=== PATIENT | male | born 1940 | race Caucasian/White ===

== ENCOUNTER → 2018-01-07 | Outpatient (CLI) | payer MEDICARE ==
--- NOTE | 2018-01-16 07:46 | HM ---
HOLTER MONITOR REPORT Patient was monitored for 24 hours. The baseline rhythm is a sinus mechanism with normal conduction. The average rate 72 beats per minute, minimum of 52, maximum 111 beats per minute. Ventricular ectopic activity was present in the form of rare single PVCs. Supraventricular ectopic activity was present in the form of rare single PACs. No diary was available. CONCLUSION: 1. Sinus mechanism baseline rhythm. 2. Rare ventricular ectopic activity. 3. Rare supraventricular ectopic activity. 4. No diary was available. MMODL / IJN: [id number] /
== END | disposition home or self-care (01) ==
LOC: RADECHMAIN 11:55
PROVIDERS: ATTEND Internal Medicine
DX: R55 Syncope and collapse (principal)
CPT/HCPCS: 93225; 93226

== ENCOUNTER → 2018-01-10 | Outpatient (CLI) | payer MEDICARE ==
--- NOTE | 2018-01-10 15:58 | US ---
EXAMINATION TYPE: US carotid duplex BILAT DATE OF EXAM: 01/10/2018 COMPARISON: NONE CLINICAL HISTORY: G45.9 Transient Cerebral Ischemic Attack. EXAM MEASUREMENTS: RIGHT: Peak Systolic Velocity (PSV) cm/sec ----- Right CCA: 122.4 ----- Right ICA: 118.7 ----- Right ECA: 90.3 ICA/CCA ratio: 1.0 RIGHT: End Diastole cm/sec ----- Right CCA: 16.5 ----- Right ICA: 24.9 ----- Right ECA: 9.0 LEFT: Peak Systolic Velocity (PSV) cm/sec ----- Left CCA: 111.2 ----- Left ICA: 191.9 ----- Left ECA: 192.1 ICA/CCA ratio: 1.7 LEFT: End Diastole cm/sec ----- Left CCA: 29.6 ----- Left ICA: 53.8 ----- Left ECA: 23.8 VERTEBRALS (direction of flow): Right Vertebral: Antegrade Left Vertebral: Antegrade Rhythm: Arrhythmia Severe atherosclerotic plaque seen bilaterally. No velocity increase seen on right, left shows slight velocity increase. Grayscale, color Doppler, spectral Doppler imaging of the carotid arteries IMPRESSION: Hemodynamic significant stenosis of the proximal internal carotid artery on the left adriana esponding to possibly 50-69% diameter reduction, consider carotid CTA for better evaluation. Extensiv e vascular calcifications are noted. No hemodynamic significant stenosis of the proximal internal ca rotid artery on the right by Doppler criteria, an indirect measurement of carotid stenosis and additi onal findings above
--- NOTE | 2018-01-11 13:37 | ECHOF ---
Referral Reason:G45.9 Transient Cerebral Ischemic Attack MEASUREMENTS -------- HEIGHT: 162.6 cm WEIGHT: 55.8 kg BP: 129/67 RVIDd: 2.9 cm (< 3.3) IVSd: 0.9 cm (0.6 - 1.1) LVIDd: 2.9 cm (3.9 - 5.3) LVPWd: 0.9 cm (0.6 - 1.1) IVSs: 1.2 cm LVIDs: 1.9 cm LVPWs: 1.4 cm LA Diam: 2.8 cm (2.7 - 3.8) LAESV Index (A-L): 23.47 ml/m Ao Diam: 3.5 cm (2.0 - 3.7) AV Cusp: 1.8 cm (1.5 - 2.6) MV EXCURSION: 21.258 mm (> 18.000) MV EF SLOPE: 119 mm/s (70 - 150) EPSS: 0.2 cm MV E Julio: 0.92 m/s MV DecT: 147 ms MV A Julio: 0.88 m/s MV E/A Ratio: 1.04 RAP: 5.00 mmHg RVSP: 32.85 mmHg FINDINGS -------- Sinus rhythm. This was a technically adequate study. The left ventricular size is normal. Left ventricular wall thickness is normal. Overall left vent ricular systolic function is normal with, an EF between 60 - 65 %. The right ventricle is normal in size. Normal LA size by volume 22+/-6 ml/m2. The right atrium is normal in size. There is mild aortic valve sclerosis. The mitral valve is normal. The mitral valve leaflets are mildly thickened. Mild tricuspid regurgitation present. Right ventricular systolic pressure is normal at < 35 mmHg. Trace/mild (physiologic) pulmonic regurgitation. The aortic root size is normal. Normal inferior vena cava with normal inspiratory collapse consistent with estimated right atrial pre ssure of 5 mmHg. There is no pericardial effusion. CONCLUSIONS -------- 1. Sinus rhythm. 2. This was a technically adequate study. 3. The left ventricular size is normal. 4. Left ventricular wall thickness is normal. 5. Overall left ventricular systolic function is normal with, an EF between 60 - 65 %. 6. The right ventricle is normal in size. 7. Normal LA size by volume 22+/-6 ml/m2. 8. The right atrium is normal in size. 9. There is mild aortic valve sclerosis. 10. The mitral valve is normal. 11. The mitral valve leaflets are mildly thickened. 12. Mild tricuspid regurgitation present. 13. Right ventricular systolic pressure is normal at < 35 mmHg. 14. Trace/mild (physiologic) pulmonic regurgitation. 15. The aortic root size is normal. 16. Normal inferior vena cava with normal inspiratory collapse consistent with estimated right atrial pressure of 5 mmHg. 17. There is no pericardial effusion. PRINTER OPERATOR: Lisseth Marie RDCS
== END | disposition home or self-care (01) ==
LOC: RADUSMAIN 14:47
PROVIDERS: ATTEND Internal Medicine
DX: I65.22 Occlusion and stenosis of left carotid artery (principal); I99.8 Other disorder of circulatory system
CPT/HCPCS: 93306; 93880

== ENCOUNTER 2020-03-12 13:08 | Inpatient (IN) | payer MEDICARE ==
[2020-03-12] MEDS ORDERED: SODIUM CHLORIDE 0.9% 1,000 ML IV STA (13:20)
[2020-03-12] MEDS ORDERED: diphenhydrAMINE 50 MG/ML 1 ML VIAL IVP STA (13:20)
[2020-03-12] MEDS ORDERED: METOCLOPRAMIDE 5 MG/ML 2 ML VIAL IVP STA (13:20)
--- NOTE | 2020-03-12 13:43 | ED ---
Fall HPI <Walter Small - Last Filed: 03/12/20 16:20> - General Source: EMS Mode of arrival: EMS <Beverly Shirley - Last Filed: 03/12/20 22:55> - General Chief Complaint: Fall Stated Complaint: Fall/Syncope Time Seen by Provider: 03/12/20 13:20 - History of Present Illness Initial Comments: Patient is a 79-year-old male who presents emergency Department after he had a syncopal episode. He states he was outside in his garage rolling a cigarette. States he felt dizzy and fell onto to his left hip. He sustained a skin tear to the left elbow and left hand. He is complaining of pain in the left hip. Denies any chest pain or shortness of breath. No neck pain or back pain. He was placed in a c-collar at the scene. Denies any headache or visual changes. No chest pain previous to the incident. Denies any abdominal pain. Patient denies any numbness or tingling in his left leg. He is extremely hard of hearin g and therefore the HPI is limited. There are no other alleviating, precipitating or modifying factors (Beverly Shirley) - Related Data Home Medications Medication Instructions Recorded Confirmed Alfuzosin HCl [Alfuzosin HCl ER] 10 mg PO DAILY 03/12/20 03/12/20 Aspirin EC [Ecotrin Low Dose] 81 mg PO DAILY 03/12/20 03/12/20 Atorvastatin [Lipitor] 20 mg PO HS 03/12/20 03/12/20 Finasteride [Proscar] 5 mg PO DAILY 03/12/20 03/12/20 Allergies Allergy/AdvReac Type Severity Reaction Status Date / Time Antihistamines - Alkylamine AdvReac urinary Verified 03/12/20 15:25 retention Antihistamines - Ethanolamine AdvReac urinary Verified 03/12/20 15:25 retention Antihistamines - AdvReac urinary Verified 03/12/20 15:25 Ethylenediamine retention Antihistamines - Piperazine AdvReac urinary Verified 03/12/20 15:25 retention Antihistamines - Piperidine AdvReac urinary Verified 03/12/20 15:25 retention diphenhydramine AdvReac urinary Verified 03/12/20 15:25 [From Benadryl] retention hydromorphone HCl AdvReac Confusion Verified 03/12/20 15:25 [From Dilaudid] morphine AdvReac Confusion Verified 03/12/20 15:25 Review of Systems ROS Other: All systems not noted in ROS Statement are negative. <Walter Small - Last Filed: 03/12/20 16:20> ROS Other: All systems not noted in ROS Statement are negative. <Beverly Shirley - Last Filed: 03/12/20 22:55> ROS Statement: Those systems with pertinent positive or pertinent negative responses have been documented in the HPI. Past Medical History Past Medical History: Deep Vein Thrombosis (DVT), Hyperlipidemia History of Any Multi-Drug Resistant Organisms: None Reported Past Surgical History: Appendectomy, Back Surgery Past Psychological History: No Psychological Hx Reported Smoking Status: Current every day smoker Past Alcohol Use History: None Reported Past Drug Use History: None Reported <Beverly Shirley - Last Filed: 03/12/20 22:55> General Exam Limitations: physical limitation (hard of hearing) General appearance: alert, in no apparent distress Head exam: Present: atraumatic, normocephalic, normal inspection Eye exam: Present: normal appearance, PERRL, EOMI. Absent: scleral icterus, conjunctival injection, periorbital swelling ENT exam: Present: normal exam, mucous membranes moist Neck exam: Present: normal inspection, other (c-collar). Absent: tenderness, meningismus, lymphadenopathy Respiratory exam: Present: normal lung sounds bilaterally. Absent: respiratory distress, wheezes, rales, rhonchi, stridor Cardiovascular Exam: Present: regular rate, normal rhythm, normal heart sounds. Absent: systolic murmur, diastolic murmur, rubs, gallop, clicks GI/Abdominal exam: Present: soft, normal bowel sounds. Absent: distended, tenderness, guarding, rebound, rigid Extremities exam: Present: tenderness (left hip. Patient has deformity with rotation and shortening. 2+ dorsalis pedis and posterior tibial pulses bilaterally. Patient has intact sensation over the medial, lateral dorsal aspects of the feet. He has 5/5 muscle strength in his ankle and great toe dorsiflexors and foot plantar flexors. No range of motion testing done at the patient's left hip or knee due to pain.), normal capillary refill. Absent: pedal edema, joint swelling, calf tenderness Back exam: Present: normal inspection Neurological exam: Present: alert, oriented X3, CN II-XII intact Psychiatric exam: Present: normal affect, normal mood Skin exam: Present: warm, dry, normal color, other (skin tear left dorsal hand - 1.5 cm, left elbow - 0.5 cm ). Absent: rash <Beverly Shirley - Last Filed: 03/12/20 22:55> Course Vital Signs 03/12/20 03/12/20 03/12/20 13:15 13:18 14:00 Temperature 98.7 F Pulse Rate 78 70 Respiratory 18 15 Rate Blood Pressure 142/80 142/80 O2 Sat by Pulse 97 97 97 Oximetry 03/12/20 03/12/20 15:00 16:00 Temperature 98.8 F Pulse Rate 65 65 Respiratory 16 16 Rate Blood Pressure 140/64 143/75 O2 Sat by Pulse 97 94 L Oximetry Medical Decision Making - Lab Data Result diagrams: 03/12/20 13:51 03/12/20 15:19 <Walter Small - Last Filed: 03/12/20 16:20> - Lab Data Result diagrams: 03/12/20 13:51 03/12/20 15:19 <Beverly Shirley - Last Filed: 03/12/20 22:55> - Medical Decision Making Patient's care is signed out awaiting x-ray of the elbow, chest, and pelvis with left hip films. These x-rays are significant for a left IT fracture comminuted, displaced. Case discussed with Dolly Cervantes covering for orthopedics, will admit to Dr. Deras with Dr. Chadwick on consult for medical management and preoperative clearance. Dr. Chadwick has been contacted. (Walter Small) Upon arrival patient placed into room 10. A thorough history and physical exam was performed. Patient does have obvious deformity to the left hip. He was provided 50 mcg of fentanyl by EMS. I did give him another 50 mcg after hospital arrival. Laboratory studies were conducted. Patient went for CT of his brain and cervical spine. C-collar was removed after the CAT scan was read as negative. He has no neck pain upon removal. Patient is currently going over for x-ray imaging. The case with be signed out to Dr. Small (Beverly Shirley) - Lab Data Lab Results 03/12/20 03/12/20 03/12/20 Range/Units 13:51 14:46 15:19 WBC 15.9 H (3.8-10.6) k/uL RBC 4.35 (4.30-5.90) m/uL Hgb 11.7 L (13.0-17.5) gm/dL Hct 37.3 L (39.0-53.0) % MCV 85.7 (80.0-100.0) fL MCH 26.8 (25.0-35.0) pg MCHC 31.3 (31.0-37.0) g/dL RDW 13.5 (11.5-15.5) % Plt Count 155 (150-450) k/uL Neutrophils % 89 % Lymphocytes % 5 % Monocytes % 5 % Eosinophils % 0 % Basophils % 0 % Neutrophils # 14.1 H (1.3-7.7) k/uL Lymphocytes # 0.9 L (1.0-4.8) k/uL Monocytes # 0.8 (0-1.0) k/uL Eosinophils # 0.1 (0-0.7) k/uL Basophils # 0.0 (0-0.2) k/uL PT 10.3 (9.0-12.0) sec INR 1.0 (<1.2) APTT 24.0 (22.0-30.0) sec Sodium 136 L (137-145) mmol/L Potassium 3.8 (3.5-5.1) mmol/L Chloride 108 H (98-107) mmol/L Carbon Dioxide 24 (22-30) mmol/L Anion Gap 4 mmol/L BUN 14 (9-20) mg/dL Creatinine 0.79 (0.66-1.25) mg/dL Est GFR (CKD-EPI)AfAm >90 (>60 ml/min/1.73 sqM) Est GFR (CKD-EPI)NonAf 85 (>60 ml/min/1.73 sqM) Glucose 134 H (74-99) mg/dL Calcium 9.0 (8.4-10.2) mg/dL Total Bilirubin 0.6 (0.2-1.3) mg/dL AST 23 (17-59) U/L ALT 11 (4-49) U/L Alkaline Phosphatase 65 (38-126) U/L Creatine Kinase 116 (55-170) U/L Troponin I (0.000-0.034) ng/mL Total Protein 5.9 L (6.3-8.2) g/dL Albumin 3.7 (3.5-5.0) g/dL 03/12/20 Range/Units 15:19 WBC (3.8-10.6) k/uL RBC (4.30-5.90) m/uL Hgb (13.0-17.5) gm/dL Hct (39.0-53.0) % MCV (80.0-100.0) fL MCH (25.0-35.0) pg MCHC (31.0-37.0) g/dL RDW (11.5-15.5) % Plt Count (150-450) k/uL Neutrophils % % Lymphocytes % % Monocytes % % Eosinophils % % Basophils % % Neutrophils # (1.3-7.7) k/uL Lymphocytes # (1.0-4.8) k/uL Monocytes # (0-1.0) k/uL Eosinophils # (0-0.7) k/uL Basophils # (0-0.2) k/uL PT (9.0-12.0) sec INR (<1.2) APTT (22.0-30.0) sec Sodium (137-145) mmol/L Potassium (3.5-5.1) mmol/L Chloride (98-107) mmol/L Carbon Dioxide (22-30) mmol/L Anion Gap mmol/L BUN (9-20) mg/dL Creatinine (0.66-1.25) mg/dL Est GFR (CKD-EPI)AfAm (>60 ml/min/1.73 sqM) Est GFR (CKD-EPI)NonAf (>60 ml/min/1.73 sqM) Glucose (74-99) mg/dL Calcium (8.4-10.2) mg/dL Total Bilirubin (0.2-1.3) mg/dL AST (17-59) U/L ALT (4-49) U/L Alkaline Phosphatase (38-126) U/L Creatine Kinase (55-170) U/L Troponin I <0.012 (0.000-0.034) ng/mL Total Protein (6.3-8.2) g/dL Albumin (3.5-5.0) g/dL - EKG Data EKG Comments: EKG demonstrates a sinus rhythm with a first-degree block. Rate of 75. MS interval is 218. QRS 126. QTC of 471. No acute ST segment elevation or depression. No signs of high degree block (Beverly Shirley) Disposition Is patient prescribed a controlled substance at d/c from ED?: No Decision to Admit Reason: Admit from EC Decision Date: 03/12/20 Decision Time: 16:21 <Walter Small - Last Filed: 03/12/20 16:20> <Beverly Shirley - Last Filed: 03/12/20 22:55> Clinical Impression: Syncope, Fall, Fracture, intertrochanteric, left femur Disposition: ADMITTED IP TO THIS HOSP Condition: Stable
[2020-03-12] MEDS ORDERED: fentaNYL (PF) 50 MCG/ML 2 ML AMP IVP STA (13:45)
[2020-03-12 14:05] LABS: Basophils % (A) 0 %; Eosinophils # (A) 0.1 k/uL (0-0.7); Eosinophils % (A) 0 %; HCT 37.3 % (39.0-53.0); HGB 11.7 gm/dL (13.0-17.5); Lymphocytes # (A) 0.9 k/uL (1.0-4.8); Lymphocytes % (A) 5 %; MCH 26.8 pg (25.0-35.0); MCHC 31.3 g/dL (31.0-37.0); MCV 85.7 fL (80.0-100.0); Mean Platelet Volume 8.8; Monocytes # (A) 0.8 k/uL (0-1.0); Monocytes % (A) 5 %; Neutrophils # (A) 14.1 k/uL (1.3-7.7); Neutrophils % (A) 89 %; Platelet Count 155 k/uL (150-450); RBC 4.35 m/uL (4.30-5.90); RDW 13.5 % (11.5-15.5); WBC 15.9 k/uL (3.8-10.6)
--- NOTE | 2020-03-12 14:57 | CT ---
EXAMINATION TYPE: CT brain cspine wo con DATE OF EXAM: 03/12/2020 COMPARISON: CT brain 04/14/2010 HISTORY: syncope CT DLP: 1425.3 mGycm Automated exposure control for dose reduction was used. TECHNIQUE: CT scan of the head and cervical spine are performed without contrast. FINDINGS: There is no acute intracranial hemorrhage, mass effect, or midline shift identified. The ventricles and sulci are prominent with generalized volume loss. There are patchy deep, subcortical, and periventricular white matter hypodensities, increased from 2010 CT comparison. Small old right b rebecca ganglia lacunar infarct. The globes are grossly symmetric and the mastoid air cells are clear. T here is air-fluid level of the right maxillary sinus. Cervical spine is visualized in its entirety from C1 through upper thoracic levels and demonstrates n o evidence of acute fracture or dislocation. Prevertebral soft tissue appears within normal limits. The C1-C2 articulation is intact. Multilevel degenerative changes with varying degrees of canal and neural foramina narrowing. No high-grade canal stenosis. Within the right lung apex there is a 1.4 x 1.0 cm irregular pleural-based nodularity. IMPRESSION: 1. No acute intracranial hemorrhage, mass effect, or midline shift is seen. 2. Increased white matter hypodensities versus 2010 CT brain comparison. Findings likely represent pr ogression of chronic microvascular ischemic changes. However if there is concern for acute infarct, c onsideration can be given to follow-up MRI examination. 3. No acute fracture or dislocation of the cervical spine. 4. Right lung apex 1.4 cm irregular pleural-based nodularity. Findings may represent pleural-based sc arring versus lung nodule. Nonemergent noncontrast CT examination of the chest is recommended to asse ss for any additional lung lesions and establish baseline examination.
[2020-03-12 15:04] LABS: Prothrombin Time 10.3 sec (9.0-12.0)
[2020-03-12] MEDS ORDERED: HYDROmorphone 0.5 MG/0.5 ML SYRINGE IVP STA (15:10)
[2020-03-12 15:46] LABS: ALT 11 U/L (4-49); AST 23 U/L (17-59); African American GFR (CKD) >90 (>60 ml/min/1.73 sqM); Albumin 3.7 g/dL (3.5-5.0); Alkaline Phosphatase 65 U/L (38-126); Anion Gap 4 mmol/L; Blood Urea Nitrogen 14 mg/dL (9-20); Carbon Dioxide 24 mmol/L (22-30); Chloride 108 mmol/L (98-107); Creatine Kinase 116 U/L (55-170); Glucose 134 mg/dL (74-99); Non-African American GFR(CKD) 85 (>60 ml/min/1.73 sqM); Potassium 3.8 mmol/L (3.5-5.1); Sodium 136 mmol/L (137-145); Total Bilirubin 0.6 mg/dL (0.2-1.3); Total Protein 5.9 g/dL (6.3-8.2)
--- NOTE | 2020-03-12 15:56 | XR ---
EXAMINATION TYPE: XR chest 1V DATE OF EXAM: 03/12/2020 COMPARISON: 11/24/2012 HISTORY: 79-year-old male with cough and pain, fall TECHNIQUE: Single frontal view of the chest is obtained. FINDINGS: Rightward patient rotation alters the normal cardiomediastinal contours. Heart normal size. Atheroscl erotic arch calcification Mild hyperinflation. No consolidation or pleural effusion seen. IMPRESSION: Rotated exam. Possible underlying COPD. Otherwise, no acute process seen.
--- NOTE | 2020-03-12 15:58 | XR ---
EXAMINATION TYPE: XR elbow complete LT DATE OF EXAM: 03/12/2020 COMPARISON: NONE HISTORY: 79-year-old male fall, trauma, pain TECHNIQUE: 3 views FINDINGS: Limited assessment of elbow joint effusion due to suboptimal obliquity on the lateral view. No acute fracture, subluxation, dislocation. An IV is present at the antecubital fossa. IMPRESSION: Suboptimal positioning of the lateral view for assessment of joint effusion. No acute fracture identi fied. Lateral view can be repeated if clinical suspicion of an occult underlying injury.
--- NOTE | 2020-03-12 16:00 | XR ---
EXAMINATION TYPE: AP view pelvis and 2 views left hip DATE OF EXAM: 03/12/2020 COMPARISON: NONE HISTORY: 79-year-old male trauma, fall, pain, deformity FINDINGS: Degenerative changes lower lumbar spine. Mild degenerative change in both hips. There is a comminuted left intertrochanteric fracture with mild angulation and variable mild to moderate displacement of f racture fragments. No fracture extension to involve the lateral wall. IMPRESSION: Comminuted, angulated, mildly displaced left IT fracture.
[2020-03-12] MEDS ORDERED: NALOXONE 0.4 MG/ML 1 ML VIAL IV PRN (16:17)
[2020-03-12] MEDS: SODIUM CHLORIDE 0.9% 1,000 ML IV SCH (18:11)
[2020-03-12] MEDS ORDERED: DIAZEPAM 5 MG/ML 2 ML INJ IVP PRN (19:00)
[2020-03-12] MEDS ORDERED: diazePAM 5 MG TAB PO PRN (19:00)
[2020-03-12] MEDS: HYDROmorphone 0.5 MG/0.5 ML SYRINGE IVP PRN ×2 (19:25→23:08)
[2020-03-12] MEDS ORDERED: IPRATROPIUM-ALBUTEROL 3 ML NEB INHALATION PRN (20:00)
[2020-03-12] MEDS: IPRATROPIUM-ALBUTEROL 3 ML NEB INHALATION SCH (20:21)
[2020-03-12] MEDS: ATORVASTATIN 20 MG TAB PO SCH (23:08)
[2020-03-12] MEDS: HEPARIN SODIUM,PORCINE 5,000 UNIT/ML 1 ML VIAL SQ SCH ×2 (23:08→23:10)
--- NOTE | 2020-03-12 23:25 | CONS ---
CONSULTATION REASON FOR CONSULTATION: Advice regarding history of DVT and other multiple medical problems, requested by Dr. Deras. HISTORY OF PRESENT ILLNESS: This 79-year-old gentleman with a past medical history of DVT, hyperlipidemia, history of apparent syncope, had a fall in the garage and patient suffered acute comminuted angulated mildly displaced intertrochanteric fracture on the left side. The patient was admitted for further evaluation. The patient also was confused. The patient is being closely monitored. A CT scan of the head was done which showed increased white matter density, indicating chronic microvascular ischemia. Irregular nodularity was noted in the right apical area also. A chest x-ray which was done and personally reviewed by me showed some increased bronchovascular markings and some COPD. There is no history of any fever or rigors. PAST MEDICAL HISTORY: History of DVT, history of hyperlipidemia, history of appendectomy, back surgery. MEDICATIONS PRIOR TO ADMISSION: 1. Proscar 5 mg daily. 2. Lipitor. 3. Ecotrin. 4. Alfuzosin. Doses are reviewed. ALLERGIES: ANTIHISTAMINES, DIPHENHYDRAMINE, DILAUDID, MORPHINE. Family history, social history, review of systems could not be taken at length because of the patient's mental status. History of smoking. PHYSICAL EXAMINATION: Patient is conscious, confused. Pulse 65, blood pressure 143/75, respiration 16, temperature 99.8, pulse ox 94% on room. HEENT: Conjunctivae normal. Oral mucosa moist. NECK: No jugular venous distention. No carotid bruit. No lymph node enlargement. CARDIOVASCULAR SYSTEM: S1, S2 muffled. RESPIRATORY SYSTEM: Breath sounds diminished at the bases. A few scattered rhonchi and crackles. ABDOMEN: Soft, non-tender. No mass palpable. LEGS: Minimal edema. No swelling. NERVOUS SYSTEM: Higher functions as mentioned earlier. Moves all 4 limbs. No focal motor or sensory deficit. LYMPHATICS: No lymph node palpable in neck, axillae or groin. SKIN: No ulcer, rash, bleeding. JOINTS: No active deforming arthropathy. LABS: WBC 15.2, hemoglobin 11.7. Sodium 136, potassium 3.8. ASSESSMENT: 1. Fall and left intertrochanteric hip fracture. 2. Possible chronic obstructive pulmonary disease. 3. Increased white count, possibly reactive. 4. Anemia, normocytic. 5. Hyponatremia. 6. Change in mental status, metabolic encephalopathy, and acute delirium. 7. History of deep vein thrombosis. 8. Hyperlipidemia. 9. History of back surgery, degenerative joint disease. 10.History of continued ongoing nicotine dependence. 11.Right bundle branch block on EKG. 12.FULL CODE. RECOMMENDATIONS AND DISCUSSION: In this 79-year-old gentleman who presented with multiple complex medical issues, we will monitor the patient closely, continue the current medications, continue symptomatic treatment. Will initiate home medications and optimize bronchodilator treatment. Otherwise p.r.n. Valium. The patient is medically stable and will be cleared for surgery with some added risk because of the above-mentioned multiple complex medical issues. Otherwise, we will follow the patient closely with you. I would also recommend orthostatic vitals once the patient is more ambulant. Currently blood pressure is stable. Baseline cardiac workup shows negative troponins and EKG is showing a right bundle branch block. We will continue to monitor. MMSTEPANL / ESMEN: [id number] /
[2020-03-13] MEDS: HYDROmorphone 0.5 MG/0.5 ML SYRINGE IVP PRN ×2 (05:36→15:24)
[2020-03-13] MEDS: SODIUM CHLORIDE 0.9% 1,000 ML IV SCH ×2 (05:37→21:00)
[2020-03-13] MEDS: IPRATROPIUM-ALBUTEROL 3 ML NEB INHALATION SCH ×3 (07:46→21:00)
--- NOTE | 2020-03-13 08:40 | P.HPOR ---
History of Present Illness H&P Date: 03/13/20 Chief Complaint: Left hip fracture The patient is an 79-year-old male with a past medical history including DVT and hyperlipidemia who presented to the emergency department after a syncopal episode. The patient was rolling a cigarette in his garage and fell onto his left side. He had immediate left hip pain and was unable to bear weight. Upon evaluation in the ER, patient was found to have a comminuted intertrochanteric fracture of the left hip and skin tears to his left elbow and hand. CT of the head and neck reveal no acute bleed or fractures noted. The patient was admitted for surgical treatment of the left hip. The patient has been seen by internal medicine and has been cleared for surgery today. Today, the patient is very hard of hearing and is a little confused. He was asking for a few family members which are not present at this time and he did not know he is in the hospital currently. The patient appears comfortable laying in bed. Review of Systems ROS unobtainable: due to mental status Past Medical History Past Medical History: Deep Vein Thrombosis (DVT), Hyperlipidemia History of Any Multi-Drug Resistant Organisms: None Reported Past Surgical History: Appendectomy, Back Surgery Past Psychological History: No Psychological Hx Reported Smoking Status: Current every day smoker Past Alcohol Use History: None Reported Past Drug Use History: None Reported Medications and Allergies Home Medications Medication Instructions Recorded Confirmed Type Alfuzosin HCl [Alfuzosin HCl ER] 10 mg PO DAILY 03/12/20 03/12/20 History Aspirin EC [Ecotrin Low Dose] 81 mg PO DAILY 03/12/20 03/12/20 History Atorvastatin [Lipitor] 20 mg PO HS 03/12/20 03/12/20 History Finasteride [Proscar] 5 mg PO DAILY 03/12/20 03/12/20 History Allergies Allergy/AdvReac Type Severity Reaction Status Date / Time Antihistamines - Alkylamine AdvReac urinary Verified 03/12/20 15:25 retention Antihistamines - Ethanolamine AdvReac urinary Verified 03/12/20 15:25 retention Antihistamines - AdvReac urinary Verified 03/12/20 15:25 Ethylenediamine retention Antihistamines - Piperazine AdvReac urinary Verified 03/12/20 15:25 retention Antihistamines - Piperidine AdvReac urinary Verified 07/24/20 15:25 retention diphenhydramine AdvReac urinary Verified 03/12/20 15:25 [From Benadryl] retention hydromorphone HCl AdvReac Confusion Verified 03/12/20 15:25 [From Dilaudid] morphine AdvReac Confusion Verified 03/12/20 15:25 Physical Examination The patient is a 79 year old male that is no acute distress. He is alert and oriented x1. The patient's head is normocephalic and atraumatic. Exam of the cervical spine reveals no pain upon palpation or range of motion. Exam of the bilateral upper extremities reveal no obvious deformities or pain upon range of motion. There are dressings to the left elbow and hand that clean, dry, and intact. Exam of the right lower extremity reveals no pain upon palpation. Exam of the left lower extremity reveals a externally rotated and shortened leg. No pain upon palpation to the lateral hip. There is pain upon logrolling and any range of motion of the leg. Bilateral calves are soft and nontender. Patient has good foot and ankle motion bilaterally. Neurological and circulatory status is intact. Results - Labs Labs: Abnormal Lab Results - Last 24 Hours (Table) 03/12/20 03/12/20 Range/Units 13:51 15:19 WBC 15.9 H (3.8-10.6) k/uL Hgb 11.7 L (13.0-17.5) gm/dL Hct 37.3 L (39.0-53.0) % Neutrophils # 14.1 H (1.3-7.7) k/uL Lymphocytes # 0.9 L (1.0-4.8) k/uL Sodium 136 L (137-145) mmol/L Chloride 108 H (98-107) mmol/L Glucose 134 H (74-99) mg/dL Total Protein 5.9 L (6.3-8.2) g/dL H & H 03/12/20 Range/Units 13:51 Hgb 11.7 L (13.0-17.5) gm/dL Hct 37.3 L (39.0-53.0) % Coagulation 03/12/20 Range/Units 14:46 INR 1.0 (<1.2) Result Diagrams: 03/12/20 13:51 03/12/20 15:19 - Diagnostic results Hip x-ray: image reviewed (Left hip x-rays dated 03/12/2020 reveals a comminuted angulated and mildly displaced intertrochanteric fracture of the left hip) Assessment and Plan (1) Hyperlipidemia Current Visit: Yes Status: Acute Code(s): E78.5 - HYPERLIPIDEMIA, UNSPECIFIED SNOMED Code(s): 70072478 (2) Fall Current Visit: Yes Status: Acute Code(s): W19.XXXA - UNSPECIFIED FALL, INITIAL ENCOUNTER SNOMED Code(s): 3175273 (3) Fracture, intertrochanteric, left femur Current Visit: Yes Status: Acute Code(s): S72.142A - DISPLACED INTERTROCHANTERIC FRACTURE OF LEFT FEMUR, INIT SNOMED Code(s): 470381455 (4) Syncope Current Visit: Yes Status: Acute Code(s): R55 - SYNCOPE AND COLLAPSE SNOMED Code(s): 420675988 Plan: The clinical and x-ray findings were discussed with the patient to the best of my ability since he is very hard of hearing. No family is at the bedside at this time. The case was discussed with Dr. Deras. The patient is currently nothing by mouth. Ee are planning a left hip close reduction with insertion of IT nail later this morning. Patient has been cleared medically. We will continue to follow patient closely postoperatively and make further recommendations as needed. He will most likely need rehab upon discharge from the hospital.
[2020-03-13] MEDS: FINASTERIDE 5 MG TAB PO SCH (08:43)
[2020-03-13] MEDS: PANTOPRAZOLE 40 MG TABLET PO SCH (08:43)
[2020-03-13] MEDS: TAMSULOSIN 0.4 MG CAP.ER.24H PO SCH (08:43)
[2020-03-13] MEDS: HEPARIN SODIUM,PORCINE 5,000 UNIT/ML 1 ML VIAL SQ SCH ×2 (08:43→21:11)
[2020-03-13] MEDS: NICOTINE 14MG/24HR PATCH TRANSDERM SCH (08:47)
[2020-03-13 09:37] LABS: Basophils % (A) 0 %; Eosinophils % (A) 0 %; HCT 30.7 % (39.0-53.0); Lymphocytes # (A) 0.9 k/uL (1.0-4.8); Lymphocytes % (A) 10 %; MCHC 31.9 g/dL (31.0-37.0); MCV 87.9 fL (80.0-100.0); Mean Platelet Volume 7.6; Monocytes # (A) 0.8 k/uL (0-1.0); Monocytes % (A) 9 %; Neutrophils # (A) 7.4 k/uL (1.3-7.7); Neutrophils % (A) 80 %; Platelet Count 187 k/uL (150-450); RBC 3.49 m/uL (4.30-5.90); RDW 13.6 % (11.5-15.5); WBC 9.2 k/uL (3.8-10.6)
[2020-03-13 09:40] LABS: HGB 9.8 gm/dL (13.0-17.5)
[2020-03-13 09:46] LABS: African American GFR (CKD) >90 (>60 ml/min/1.73 sqM); Anion Gap 3 mmol/L; Blood Urea Nitrogen 16 mg/dL (9-20); Calcium 8.7 mg/dL (8.4-10.2); Carbon Dioxide 27 mmol/L (22-30); Chloride 108 mmol/L (98-107); Glucose 107 mg/dL (74-99); Non-African American GFR(CKD) 83 (>60 ml/min/1.73 sqM); Potassium 4.5 mmol/L (3.5-5.1); Sodium 138 mmol/L (137-145)
[2020-03-13] MEDS ORDERED: SODIUM CHLORIDE 0.9% 1,000 ML IV ONE ×2 (10:26)
[2020-03-13] MEDS ORDERED: MIDAZOLAM 2 MG/2 ML VIAL ONE (11:43)
[2020-03-13] MEDS ORDERED: fentaNYL (PF) 50 MCG/ML 2 ML AMP ONE (11:43)
[2020-03-13] MEDS ORDERED: PHENYLEPHRINE-0.9% NACL SYG 1 MG/10 ML SYRINGE ONE (11:43)
[2020-03-13] MEDS ORDERED: PROPOFOL 10 MG/ML 20 ML VIAL IV ONE (11:43)
[2020-03-13] MEDS ORDERED: KETAMINE 10 MG/ML 20 ML VIAL ONE (11:43)
[2020-03-13] MEDS ORDERED: LACTATED RINGERS 1,000 ML IV ONE ×2 (12:28)
[2020-03-13 12:37] VITALS: BMI 18.1
--- NOTE | 2020-03-13 12:37 | P.OP ---
Date of Procedure: 03/13/20 Procedure(s) Performed: PREOPERATIVE DIAGNOSIS: Left hip intertrochanteric fracture. POSTOPERATIVE DIAGNOSIS: Left hip intertrochanteric fracture. OPERATION: Left hip intertrochanteric fracture closed reduction and intramedullary nailing using Synthes IT nail. MEAT COUNTER CLERK: None ANESTHESIA: Spinal ESTIMATED BLOOD LOSS: 50 mL. COMPLICATIONS: None OPERATIVE FINDINGS: See dictation INDICATIONS: Mr. Vargas is an 79-year-old male with a history of left intertrochanteric fracture. The patient presents to the operating room today for closed reduction and intramedullary nailing. I discussed the risks of surgery in detail as being inclusive of but not limited to: Bleeding, infection, scarring, discomfort, blood vessel and/or nerve damage, need for further surgery, malunion, nonunion, gait disturbance including persistent or permanent limp, limb length inequality, arthritis, hardware failure, blood clot, pulmonary embolism, , and other risks. The consent form has been signed. PROCEDURE: After appropriate consent was obtained, the patient was taken to the operating room and placed in supine position. Spinal anesthetic was administered and after confirmation of adequate anesthesia, the patient was carefully placed in the supine position on the operating room table in the fr acture table. The patient was placed up against a well-padded peroneal post. Care was taken to make sure about that all pressure points were adequately padded. The affected leg was placed in boot traction and the unaffected leg was placed in a well leg larsen. Using gentle longitudinal distraction as well as adduction and internal rotation, the fracture was reduced as assessed by AP and lateral C-arm imaging. Once a satisfactory reduction had been obtained, the thigh was prepped and draped in the usual aseptic fashion using ChloraPrep. Ioban drape was used for the case and the patient received intravenous antibiotics prior to incision. Timeout was called, confirming patient identity, side, procedure, and administration of antibiotics. The incision was then created with a #10 blade just proximal to the greater trochanter laterally. It was carried down through skin into the subcutaneous tissues and through fascia. Hemostasis was obtained using electrocautery. The tip of the greater trochanter was palpated and a guide pin was placed at the tip and directed into the femoral shaft as assessed with C-arm imaging. Once optimal pin position had been obtained, a 17 mm reamer was used over the guide pin to create a path for the IT nail. IT nail selected was assembled to the insertion jig on the back table and bushings were checked for accuracy. The nail was then inserted using gentle mallet taps until it was fully deployed. The amount of rotation of the implant was assessed based on the amount of anteversion of the femoral neck. This was rotated to match the patient's femoral neck anteversion and the helical blade guide was placed through the insertion jig and through an incision on the lateral side of the thigh more distal than the first. Once this guide was placed against the lateral cortex of the femur, a guide pin was drilled into the central region of the femoral head and neck as based on AP and lateral C-arm imaging. Once optimal pin position had been obtained, the guidewire was measured and appropriately sized helical blade was selected. The path for the helical blade was prepared using a tapered reamer. The helical blade was then inserted using gentle mallet taps along the guidewire until it was fully deployed. There was no displacement of the fracture during this step. The anti-rotation screw was locked down and the insertion apparatus for the helical blade was removed. The guide pin was then removed. Traction was then removed from the leg and the distal interlock was placed through the jig using standard technique. Finally, the insertion jig for the nail was removed and final C-arm images were taken and saved in both AP and lateral planes. The final x-rays showed satisfactory positioning of the implant and good reduction of the fracture. The top of the nail was plugged with a small quantity of bone wax and the incisions were then thoroughly irrigated with normal saline. Final hemostasis was obtained using electrocautery and closure of the fascia was performed using 0-Vicryl suture. 2-0 Vicryl suture was used in the subcutaneous tissues and virgen were used for the skin. Sterile dressing was then applied and the patient was carefully removed from the fracture table frame and placed onto the stretcher. The patient tolerated the procedure well. There were no complications and 50 cc of blood loss. The patient was then subsequently kwon sferred to recovery room in stable condition. Sponge and needle counts were correct.
[2020-03-13] MEDS ORDERED: Acetaminophen-Codeine 300-30mg TAB PO PRN (12:38)
--- NOTE | 2020-03-13 13:22 | FL ---
EXAMINATION TYPE: FL guidance operating room DATE OF EXAM: 03/13/2020 HISTORY: Fluoroscopy time 51 seconds of fluoroscopy provided. IMPRESSION: 1. Fluoroscopy time.
--- NOTE | 2020-03-13 13:36 | XR ---
FLUOROSCOPY: 51 seconds of fluoroscopy time were utilized during internal fixation of the left hip. 2 films docume nt the procedure.
[2020-03-13 15:14] LABS: Basophils % (A) 0 %; Eosinophils % (A) 0 %; HCT 29.2 % (39.0-53.0); HGB 9.4 gm/dL (13.0-17.5); Lymphocytes # (A) 1.2 k/uL (1.0-4.8); Lymphocytes % (A) 9 %; MCHC 32.2 g/dL (31.0-37.0); MCV 86.9 fL (80.0-100.0); Mean Platelet Volume 8.3; Monocytes % (A) 8 %; Neutrophils # (A) 10.2 k/uL (1.3-7.7); Neutrophils % (A) 82 %; Platelet Count 176 k/uL (150-450); RBC 3.36 m/uL (4.30-5.90); RDW 13.5 % (11.5-15.5); WBC 12.4 k/uL (3.8-10.6)
--- NOTE | 2020-03-13 17:10 | P.PN ---
Subjective No overnight events patient is otherwise clinically doing well. Constitutional: Denied any fatigue denied any fever. Cardio vascular: denied any chest pain, palpitations Gastrointestinal denied any nausea vomiting Pulmonary: Denied any shortness of breath cough Neurologic denied any new focal deficits All inpatient medications were reviewed and appropriate changes in these medications as dictated in the interval history and assessment and plan. Objective - Vital Signs Vital signs: Vital Signs Temp 97.0 F L 03/13/20 13:08 Pulse 76 03/13/20 13:51 Resp 16 03/13/20 13:51 BP 131/64 03/13/20 13:51 Pulse Ox 99 03/13/20 13:51 Intake & Output 03/12/20 03/13/20 03/13/20 18:59 06:59 18:59 Intake Total 600 Output Total 600 250 Balance -600 350 Weight 52.617 kg 52.617 kg Intake: IV 600 Output: Urine 600 200 Estimated Blood Loss 50 Other: Voiding Method Indwelling Catheter Indwelling Catheter - Exam PHYSICAL EXAMINATION: GENERAL: The patient is alert and oriented x3, not in any acute distress. Well developed, well nourished. HEENT: Pupils are round and equally reacting to light. EOMI. No scleral icterus. No conjunctival pallor. Normocephalic, atraumatic. No pharyngeal erythema. No thyromegaly. CARDIOVASCULAR: S1 and S2 present. No murmurs, rubs, or gallops. PULMONARY: Chest is clear to auscultation, no wheezing or crackles. ABDOMEN: Soft, nontender, nondistended, normoactive bowel sounds. No palpable organomegaly. MUSCULOSKELETAL: Deferred to orthopedic surgery EXTREMITIES: No cyanosis, clubbing, or pedal edema. NEUROLOGICAL: Gross neurological examination did not reveal any focal deficits. SKIN: No rashes. - Labs CBC & Chem 7: 03/13/20 15:00 03/13/20 08:59 Labs: Abnormal Lab Results - Last 24 Hours (Table) 03/13/20 03/13/20 03/13/20 Range/Units 08:59 08:59 15:00 WBC 12.4 H (3.8-10.6) k/uL RBC 3.49 L 3.36 L (4.30-5.90) m/uL Hgb 9.8 L D 9.4 L (13.0-17.5) gm/dL Hct 30.7 L 29.2 L (39.0-53.0) % Neutrophils # 10.2 H (1.3-7.7) k/uL Lymphocytes # 0.9 L (1.0-4.8) k/uL Chloride 108 H (98-107) mmol/L Glucose 107 H (74-99) mg/dL Assessment and Plan Plan: -Fall and left intertrochanteric fracture status post surgery. -COPD without any significant exacerbation -Leukocytosis reactive secondary to fall -Hyponatremia hypovolemic hyponatremia improved with IV fluids IV fluids will be discontinued -Hyperlipidemia -Chronic low back pain -Benign prostatic hypertrophy Continue with present medications for myeloid benzo as well as barbiturates anticollagen medications constricting his age
[2020-03-13] MEDS: KETOROLAC 30 MG/ML 1 ML VIAL IVP PRN (17:48)
[2020-03-13] MEDS: FAMOTIDINE 20 MG TAB PO SCH (21:11)
[2020-03-13] MEDS: ATORVASTATIN 20 MG TAB PO SCH (21:11)
[2020-03-14] MEDS: KETOROLAC 30 MG/ML 1 ML VIAL IVP PRN (04:03)
[2020-03-14] MEDS ORDERED: HALOPERIDOL LACTATE 5 MG/ML 1 ML VIAL IM PRN (06:15)
[2020-03-14] MEDS: IPRATROPIUM-ALBUTEROL 3 ML NEB INHALATION SCH ×3 (07:27→20:56)
[2020-03-14] MEDS: PANTOPRAZOLE 40 MG TABLET PO SCH (07:30)
[2020-03-14] MEDS: HEPARIN SODIUM,PORCINE 5,000 UNIT/ML 1 ML VIAL SQ SCH ×2 (07:31→21:19)
[2020-03-14] MEDS: FINASTERIDE 5 MG TAB PO SCH (07:31)
[2020-03-14] MEDS: TAMSULOSIN 0.4 MG CAP.ER.24H PO SCH (07:31)
[2020-03-14] MEDS: FAMOTIDINE 20 MG TAB PO SCH (07:31)
[2020-03-14] MEDS: SODIUM CHLORIDE 0.9% 1,000 ML IV SCH ×2 (07:31→21:20)
[2020-03-14] MEDS: NICOTINE 14MG/24HR PATCH TRANSDERM SCH (07:31)
[2020-03-14 08:34] LABS: Calcium 8.7 mg/dL (8.4-10.2); Potassium 3.8 mmol/L (3.5-5.1)
[2020-03-14 08:39] LABS: Basophils % (A) 0 %; Eosinophils % (A) 0 %; HCT 24.4 % (39.0-53.0); HGB 8.2 gm/dL (13.0-17.5); Lymphocytes # (A) 0.4 k/uL (1.0-4.8); Lymphocytes % (A) 3 %; MCH 29.1 pg (25.0-35.0); MCHC 33.4 g/dL (31.0-37.0); MCV 87.2 fL (80.0-100.0); Mean Platelet Volume 7.8; Monocytes # (A) 0.7 k/uL (0-1.0); Monocytes % (A) 5 %; Neutrophils % (A) 91 %; Platelet Count 161 k/uL (150-450); RDW 13.6 % (11.5-15.5); WBC 13.2 k/uL (3.8-10.6)
--- NOTE | 2020-03-14 10:13 | P.PN ---
Subjective Progress Note Date: 03/14/20 Principal diagnosis: Status post left hip IT nail This is a 79 year-old male post left hip IT nail. This is post-op day 1. The patient was evaluated at the bedside today with his daughter present. He appears to be more confused today. The patient denies nausea, vomiting, abdominal pain, shortness of breath, and chest pain this morning. He states his pain is controlled at this time. The patient has not been up with physical therapy. The daughter states he is not normally this confused at home and gets very confused when he is not home. Objective - Vital Signs Vital signs: Vital Signs Temp 98.2 F 03/13/20 19:08 Pulse 78 03/13/20 19:08 Resp 16 03/13/20 19:08 BP 120/51 03/13/20 19:08 Pulse Ox 95 03/13/20 19:08 Intake & Output 03/13/20 03/14/20 03/14/20 18:59 06:59 18:59 Intake Total 600 70 Output Total 250 400 Balance 350 70 -400 Weight 52.617 kg Intake: IV 600 Oral 70 Output: Urine 200 400 Estimated Blood Loss 50 Other: Voiding Method Indwelling Catheter - Exam The patient does not appear in acute distress. Alert and orientated x3. Dressing is clean dry and intact. Incision appears fine with no erythema or active drainage. Calf is soft and nontender. Good foot and ankle motion without difficulty. Sensation and circulatory status is intact. - Labs CBC & Chem 7: 03/14/20 07:52 03/14/20 07:52 Labs: Abnormal Lab Results - Last 24 Hours (Table) 03/13/20 03/14/20 03/14/20 Range/Units 15:00 07:52 07:52 WBC 12.4 H 13.2 H (3.8-10.6) k/uL RBC 3.36 L 2.80 L (4.30-5.90) m/uL Hgb 9.4 L 8.2 L (13.0-17.5) gm/dL Hct 29.2 L 24.4 L (39.0-53.0) % Neutrophils # 10.2 H 12.0 H (1.3-7.7) k/uL Lymphocytes # 0.4 L (1.0-4.8) k/uL Sodium 135 L (137-145) mmol/L Assessment and Plan (1) Hyperlipidemia Current Visit: Yes Status: Acute Code(s): E78.5 - HYPERLIPIDEMIA, UNSPECIFIED SNOMED Code(s): 43383839 (2) Fall Current Visit: Yes Status: Acute Code(s): W19.XXXA - UNSPECIFIED FALL, INITIAL ENCOUNTER SNOMED Code(s): 4293513 (3) Fracture, intertrochanteric, left femur Current Visit: Yes Status: Acute Code(s): S72.142A - DISPLACED INTERTROCHANTERIC FRACTURE OF LEFT FEMUR, INIT SNOMED Code(s): 209340401 (4) Syncope Current Visit: Yes Status: Acute Code(s): R55 - SYNCOPE AND COLLAPSE SNOMED Code(s): 146470835 Plan: 1. Continue pain control 2. Anticoagulation with Heparin 3. Start physical therapy and ambulation, toe touch weightbearing 4. Anticipate discharge to [facility] in 1-2 days.
[2020-03-14] MEDS: Acetaminophen-Codeine 300-30mg TAB PO PRN ×3 (11:19→19:53)
[2020-03-14] MEDS: diazePAM 5 MG TAB PO PRN (19:53)
[2020-03-14] MEDS: ATORVASTATIN 20 MG TAB PO SCH (21:19)
[2020-03-15] MEDS: IPRATROPIUM-ALBUTEROL 3 ML NEB INHALATION SCH ×3 (07:11→21:15)
--- NOTE | 2020-03-15 08:41 | P.PN ---
Subjective Progress Note Date: 03/15/20 Principal diagnosis: Intertrochanteric fracture left hip. Status post close reduction with insertion of intertrochanteric nail left hip. This is an 79-year-old male who is status post close reduction with insertion of intertrochanteric nail of the left hip. He continues to have some confusion. His daughter is present at bedside. Objective - Vital Signs Vital signs: Vital Signs Temp 98.3 F 03/15/20 01:00 Pulse 80 03/15/20 07:24 Resp 20 03/15/20 01:00 BP 164/76 03/15/20 01:00 Pulse Ox 95 03/15/20 07:13 Intake & Output 03/14/20 03/15/20 03/15/20 18:59 06:59 18:59 Output Total 400 Balance -400 Output: Urine 400 Other: Voiding Method Urinal Urinal Incontinent Incontinent # Voids 1 1 - Exam This is a pleasantly confused 79-year-old male in no acute distress. He is alert with some confusion. His daughter is present at bedside. Exam of the left hip reveals that his dressing is clean, dry and intact. He has full foot and ankle motion without difficulty or pain. Neurovascular status to the lower extremity is intact. - Labs CBC & Chem 7: 03/14/20 07:52 03/14/20 07:52 Labs: Abnormal Lab Results - Last 24 Hours (Table) 03/14/20 Range/Units 07:52 WBC 13.2 H (3.8-10.6) k/uL RBC 2.80 L (4.30-5.90) m/uL Hgb 8.2 L (13.0-17.5) gm/dL Hct 24.4 L (39.0-53.0) % Neutrophils # 12.0 H (1.3-7.7) k/uL Lymphocytes # 0.4 L (1.0-4.8) k/uL Assessment and Plan (1) Fall Current Visit: Yes Status: Acute Code(s): W19.XXXA - UNSPECIFIED FALL, INITIAL ENCOUNTER SNOMED Code(s): 2778168 (2) Fracture, intertrochanteric, left femur Current Visit: Yes Status: Acute Code(s): S72.142A - DISPLACED INTERTROCHANTERIC FRACTURE OF LEFT FEMUR, INIT SNOMED Code(s): 089328080 Plan: The clinical findings are discussed the patient and his daughter. The daughter is requesting reevaluation with cardiology to discuss his bradycardia. We will plan transfer to inpatient rehab when cleared medically.
--- NOTE | 2020-03-15 10:37 | P.PN ---
Subjective Progress Note Date: 03/14/20 Principal diagnosis: Sinus bradycardia Fall/left intertrochanteric hip fracture; status post surgery Hyponatremia 79-year-old male with a past medical history including DVT and hyperlipidemia who presented to the emergency department after a syncopal episode. The patient was rolling a cigarette in his garage and fell onto his left side. He had immediate left hip pain and was unable to bear weight. Upon evaluation in the ER, patient was found to have a comminuted intertrochanteric fracture of the left hip and skin tears to his left elbow and hand. CT of the head and neck reveal no acute bleed or fractures noted. The patient was admitted for surgical treatment of the left hip. Patient is status post left hip surgery; POD #1; patient remains placid confused 03/14/2020 Patient is seen and evaluated with multiple family members at bedside; daughter is concerned about episodes of bradycardia; cardiology consult has been placed Vital signs remained stable with a temperature of 98.2, pulse 78, respirations 16 and blood pressure of 120/51 Lab review shows elevated white blood count of 13.2 which is slightly increased from yesterday at 12.4; hemoglobin remained stable at 8.2; sodium of 135 Cardiology has been consulted for evaluation of bradycardia; patient has been cleared by surgery for discharge to skilled rehab; plan would be to discharge patient to SNF once evaluated and cleared by cardiology Objective - Vital Signs Vital signs: Vital Signs Temp 98.2 F 03/13/20 19:08 Pulse 78 03/13/20 19:08 Resp 16 03/13/20 19:08 BP 120/51 03/13/20 19:08 Pulse Ox 95 03/13/20 19:08 Intake & Output 03/13/20 03/14/20 03/14/20 18:59 06:59 18:59 Intake Total 600 70 Output Total 250 400 Balance 350 70 -400 Weight 52.617 kg Intake: IV 600 Oral 70 Output: Urine 200 400 Estimated Blood Loss 50 Other: Voiding Method Indwelling Catheter Indwelling Catheter - Exam HEENT: Pupils are round and equally reacting to light. EOMI. No scleral icterus. No conjunctival pallor. Normocephalic, atraumatic. No pharyngeal erythema. No thyromegaly. CARDIOVASCULAR: S1 and S2 present. No murmurs, rubs, or gallops. PULMONARY: Chest is clear to auscultation, no wheezing or crackles. ABDOMEN: Soft, nontender, nondistended, normoactive bowel sounds. No palpable organomegaly. MUSCULOSKELETAL: Deferred to orthopedic surgery EXTREMITIES: No cyanosis, clubbing, or pedal edema. NEUROLOGICAL: Gross neurological examination did not reveal any focal deficits. - Labs CBC & Chem 7: 03/14/20 07:52 03/14/20 07:52 Labs: Abnormal Lab Results - Last 24 Hours (Table) 03/13/20 03/14/20 03/14/20 Range/Units 15:00 07:52 07:52 WBC 12.4 H 13.2 H (3.8-10.6) k/uL RBC 3.36 L 2.80 L (4.30-5.90) m/uL Hgb 9.4 L 8.2 L (13.0-17.5) gm/dL Hct 29.2 L 24.4 L (39.0-53.0) % Neutrophils # 10.2 H 12.0 H (1.3-7.7) k/uL Lymphocytes # 0.4 L (1.0-4.8) k/uL Sodium 135 L (137-145) mmol/L Assessment and Plan Assessment: - Sinus bradycardia; patient remains asymptomatic; cardiology is consulted and recommendations are pending -Fall and left intertrochanteric fracture status post surgery. -COPD without any significant exacerbation -Leukocytosis reactive secondary to fall -Hyponatremia hypovolemic hyponatremia improved with IV fluids IV fluids will be discontinued -Hyperlipidemia -Chronic low back pain -Benign prostatic hypertrophy Continue with present medications for myeloid benzo as well as barbiturates anticollagen medications constricting his age Time with Patient: Greater than 30
[2020-03-15 10:50] LABS: Basophils % (A) 0 %; Eosinophils % (A) 0 %; HCT 24.3 % (39.0-53.0); Lymphocytes # (A) 0.8 k/uL (1.0-4.8); Lymphocytes % (A) 8 %; MCHC 32.7 g/dL (31.0-37.0); MCV 85.6 fL (80.0-100.0); Mean Platelet Volume 7.8; Monocytes # (A) 0.5 k/uL (0-1.0); Monocytes % (A) 4 %; Neutrophils # (A) 9.7 k/uL (1.3-7.7); Neutrophils % (A) 87 %; Platelet Count 163 k/uL (150-450); RBC 2.84 m/uL (4.30-5.90); RDW 13.5 % (11.5-15.5); WBC 11.1 k/uL (3.8-10.6)
[2020-03-15 11:11] LABS: African American GFR (CKD) >90 (>60 ml/min/1.73 sqM); Anion Gap 4 mmol/L; Blood Urea Nitrogen 28 mg/dL (9-20); Carbon Dioxide 26 mmol/L (22-30); Chloride 110 mmol/L (98-107); Glucose 136 mg/dL (74-99); Non-African American GFR(CKD) 81 (>60 ml/min/1.73 sqM); Potassium 3.7 mmol/L (3.5-5.1); Sodium 140 mmol/L (137-145)
[2020-03-15] MEDS: TAMSULOSIN 0.4 MG CAP.ER.24H PO SCH ×2 (11:22→19:43)
[2020-03-15] MEDS: FAMOTIDINE 20 MG TAB PO SCH (11:24)
[2020-03-15] MEDS: FINASTERIDE 5 MG TAB PO SCH (11:24)
[2020-03-15] MEDS: PANTOPRAZOLE 40 MG TABLET PO SCH (11:25)
[2020-03-15] MEDS: HEPARIN SODIUM,PORCINE 5,000 UNIT/ML 1 ML VIAL SQ SCH ×2 (11:25→19:44)
[2020-03-15] MEDS: NICOTINE 14MG/24HR PATCH TRANSDERM SCH (11:25)
[2020-03-15] MEDS: ACETAMINOPHEN TAB 325 MG TAB PO PRN ×2 (11:26→19:43)
--- NOTE | 2020-03-15 11:49 | P.CRDCN ---
History of Present Illness History of present illness: HISTORY OF PRESENTING ILLNESS This is a pleasant 79-year-old male past medical history significant for dyslipidemia, chronic nicotine dependence and frequent syncopal episodes of the previous 3 years. 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 We have been asked to see in consultation for syncope. He initially presented to the hospital 03/12 after suffering a near syncopal event at home, falling and fracturing his left hip. He underwent surgical repair over the weekend. He apparently has these episodes frequently over the previous 3 years. He states he can feel it coming on. He gets lightheaded and has to brace himself against something to prevent falling until it passes. Usually last less than 1 minute. He denies feeling palpitations, diaphoresis, nausea, vomiting, chest pain or shortness of breath prior too. According to the granddaughter at the bedside he has been becoming increasingly confused over the previous few months. He is forgetful and no longer drives. DIAGNOSTICS EKG reveals sinus mechanism with right bundle branch block. Chest xray underlying COPD. CT of the brain reveals no acute intracranial hemorrhage, mass effect or midline shift, increased white matter hypodensities when compared to CT of the brain from 2010 likely progression of chronic microvascular ischemic changes. Also of note a right lung nodule. Laboratory reviewed, WBC 11.1, hemoglobin 8, platelets 163, sodium 140, potassium 3.7, creatinine 0.87, cardiac enzymes negative 1. Current cardiac medications include atorvastatin 20 mg daily and aspirin 81 mg daily. Most recent echocardiogram obtained in 2018 revealed preserved LV systolic function with ejection fraction 60-65%, mild TR noted. REVIEW OF SYSTEMS At the time of my exam: CONSTITUTIONAL: Denies fever or chills. CARDIOVASCULAR: Denies chest pain, shortness of breath, orthopnea, PND or palpitations. RESPIRATORY: Denies cough. GASTROINTESTINAL: Denies abdominal pain, diarrhea, constipation, nausea or vomiting. MUSCULOSKELETAL: Denies myalgias. NEUROLOGIC: Denies numbness, tingling or weakness. ENDOCRINE: Denies fatigue, weight change, polydipsia or polyurina. GENITOURINARY: Denies burning, hematuria or urgency with micturation. HEMATOLOGIC: Denies history of anemia or bleeding. PHYSICAL EXAMINATION Blood pressure 153/66 heart rate 83 afebrile and maintaining oxygen saturation on nasal cannula. CONSTITUTIONAL: No apparent distress. HEENT: Head is normocephalic. Pupils are equal, round. Sclerae anicteric. Mucous membranes of the mouth are moist. No JVD. Left carotid bruit. CHEST EXAMINATION: Lungs are clear to auscultation. No chest wall tenderness is noted on palpation or with deep breathing. Diminished bilaterally. HEART EXAMINATION: Regular rate and rhythm. S1, S2 heard. Soft systolic ejection murmur at the left sternal border, no gallops or rub. ABDOMEN: Soft, nontender. Positive bowel sounds. EXTREMITIES: 2+ peripheral pulses, no lower extremity edema and no calf tende rness. NEUROLOGIC EXAMINATION: Patient is awake, alert and oriented x3. ASSESSMENT Syncope. Likely related to his sick sinus syndrome. Left hip fracture status post surgical repair Dyslipidemia Chronic nicotine dependence PLAN Recommend 24-hour telemetry monitoring while in the hospital. Event monitoring upon discharge. Obtain 2-D echocardiogram and Doppler study to assess cardiac structure and function. Obtain bilateral carotid Doppler. Check TSH and lipid profile. Further recommendations to follow based upon clinical course. Thank you kindly for this consultation. Nurse Practitioner note has been reviewed, I agree with a documented findings and plan of care. Patient was seen and examined. Past Medical History Past Medical History: Deep Vein Thrombosis (DVT), Hyperlipidemia History of Any Multi-Drug Resistant Organisms: None Reported Past Surgical History: Appendectomy, Back Surgery Past Psychological History: No Psychological Hx Reported Smoking Status: Current every day smoker Past Alcohol Use History: None Reported Past Drug Use History: None Reported Medications and Allergies Home Medications Medication Instructions Recorded Confirmed Type Alfuzosin HCl [Alfuzosin HCl ER] 10 mg PO DAILY 03/12/20 03/12/20 History Aspirin EC [Ecotrin Low Dose] 81 mg PO DAILY 03/12/20 03/12/20 History Atorvastatin [Lipitor] 20 mg PO HS 03/12/20 03/12/20 History Finasteride [Proscar] 5 mg PO DAILY 03/12/20 03/12/20 History Allergies Allergy/AdvReac Type Severity Reaction Status Date / Time Antihistamines - Alkylamine AdvReac urinary Verified 03/12/20 15:25 retention Antihistamines - Ethanolamine AdvReac urinary Verified 03/12/20 15:25 retention Antihistamines - AdvReac urinary Verified 03/12/20 15:25 Ethylenediamine retention Antihistamines - Piperazine AdvReac urinary Verified 03/12/20 15:25 retention Antihistamines - Piperidine AdvReac urinary Verified 03/12/20 15:25 retention diphenhydramine AdvReac urinary Verified 03/12/20 15:25 [From Benadryl] retention hydromorphone HCl AdvReac Confusion Verified 03/12/20 15:25 [From Dilaudid] morphine AdvReac Confusion Verified 03/12/20 15:25 Physical Exam Vitals: Vital Signs Temp Pulse Pulse Pulse Resp BP Pulse Ox 03/15/20 09:37 98.1 F 83 153/66 100 03/15/20 07:24 80 03/15/20 07:13 80 95 03/15/20 01:00 98.3 F 87 20 164/76 93 L 03/14/20 19:20 98.7 F 88 20 150/63 95 03/14/20 14:32 97.9 F 51 L 16 89/53 96 Intake and Output 03/14/20 03/15/20 03/15/20 22:59 06:59 14:59 Other: Voiding Method Urinal Indwelling Catheter Incontinent # Voids 0 1 Results 03/15/20 09:22 03/15/20 09:22 CBC 03/15/20 Range/Units 09:22 WBC 11.1 H (3.8-10.6) k/uL RBC 2.84 L (4.30-5.90) m/uL Hgb 8.0 L (13.0-17.5) gm/dL Hct 24.3 L (39.0-53.0) % Plt Count 163 (150-450) k/uL Comprehensive Metabolic Panel 03/15/20 Range/Units 09:22 Sodium 140 (137-145) mmol/L Potassium 3.7 (3.5-5.1) mmol/L Chloride 110 H (98-107) mmol/L Carbon Dioxide 26 (22-30) mmol/L BUN 28 H (9-20) mg/dL Creatinine 0.87 (0.66-1.25) mg/dL Glucose 136 H (74-99) mg/dL Calcium 8.0 L (8.4-10.2) mg/dL Current Medications Generic Name Dose Route Start Last Admin Trade Name Freq PRN Reason Stop Dose Admin Acetaminophen 650 mg 03/12/20 16:17 03/15/20 11:26 Tylenol Tab PO 650 mg Q6HR PRN Administration Mild Pain or Fever > 100.5 Acetaminophen/Codeine Phosphate 1 each 03/13/20 12:38 Tylenol #3 PO Q3HR PRN Pain Scale 1 to 5 Acetaminophen/Codeine Phosphate 2 each 03/13/20 12:38 03/14/20 19:53 Tylenol #3 PO 2 each Q3HR PRN Administration Pain Scale 6 to 10 Albuterol/Ipratropium 3 ml 03/12/20 20:00 03/15/20 07:11 Duoneb 0.5 Mg-3 Mg/3 Ml Soln INHALATION 3 ml RT-TID JAZMIN Administration Albuterol/Ipratropium 3 ml 03/12/20 20:00 Duoneb 0.5 Mg-3 Mg/3 Ml Soln INHALATION RT-TID PRN Shortness Of Breath Or Wheezing Atorvastatin Calcium 20 mg 03/12/20 21:00 03/14/20 21:19 Lipitor PO Not Given HS [facility] Diazepam 5 mg 03/14/20 19:44 03/14/20 19:53 Valium PO 5 mg TID PRN Administration Pain Famotidine 20 mg 03/15/20 09:00 03/15/20 11:24 Pepcid PO 20 mg DAILY JAZMIN Administration Finasteride 5 mg 03/13/20 09:00 03/15/20 11:24 Proscar PO 5 mg DAILY JAZMIN Administration Heparin Sodium (Porcine) 5,000 unit 03/12/20 21:00 03/15/20 11:25 Heparin SQ 5,000 unit Q12HR JAZMIN Administration Sodium Chloride 1,000 mls @ 75 mls/hr 03/12/20 16:30 03/14/20 21:20 Saline 0.9% IV Not Given .[id number] JAZMIN Ketorolac Tromethamine 15 mg 03/13/20 17:12 03/14/20 04:03 Toradol IVP 03/18/20 17:13 15 mg Q6HR PRN Administration Pain Naloxone HCl 0.2 mg 03/12/20 16:17 Narcan IV Q2M PRN Opioid Reversal Nicotine 1 patch 03/13/20 09:00 03/15/20 11:25 Habitrol 14mg/24hr Patch TRANSDERM 1 patch DAILY JAZMIN Administration Pantoprazole Sodium 40 mg 03/13/20 07:30 03/15/20 11:25 Protonix PO 40 mg [id number] JAZMIN Administration Tamsulosin HCl 0.4 mg 03/13/20 09:00 03/15/20 11:22 Flomax PO 0.4 mg DAILY JAZMIN Administration Intake and Output 03/14/20 03/15/20 03/15/20 22:59 06:59 14:59 Other: Voiding Method Urinal Indwelling Catheter Incontinent # Voids 0 1 03/15/20 09:22 03/15/20 09:22
--- NOTE | 2020-03-15 11:56 | US ---
EXAMINATION TYPE: US carotid duplex BILAT DATE OF EXAM: 03/15/2020 COMPARISON: NONE CLINICAL HISTORY: syncope. EXAM MEASUREMENTS: RIGHT: Peak Systolic Velocity (PSV) cm/sec ----- Right CCA: 66.7 ----- Right ICA: 78.7 ----- Right ECA: 73.5 ICA/CCA ratio: 1.2 RIGHT: End Diastole cm/sec ----- Right CCA: 8.6 ----- Right ICA: 20.4 ----- Right ECA: 0.0 LEFT: Peak Systolic Velocity (PSV) cm/sec ----- Left CCA: 81.5 ----- Left ICA: 208.2 ----- Left ECA: 157.1 ICA/CCA ratio: 2.6 LEFT: End Diastole cm/sec ----- Left CCA: 12.7 ----- Left ICA: 52.5 ----- Left ECA: 0.0 VERTEBRALS (direction of flow): Right Vertebral: Antegrade Left Vertebral: Antegrade Rhythm: Normal Irregular, calcified plaque noted in bilateral carotid systems with abnormally elevated PSV in Left I CA proximally, and mid, and in Left ECA. IMPRESSION: 1. Large irregular plaques, larger on the left, contributing to moderate stenosis of the left ICA bet ween 50 and 69%. Criteria for Assigning % of Stenosis / Diameter reduction (Estimation based on the indirect measurements of the internal carotid artery velocities (ICA PSV). 1. Normal (no stenosis)=ICA PSV < 125 cm/s: ratio < 2.0: ICA EDV<40 cm/s. 2. Less than 50% stenosis=ICA PSV < 125 cm/s: ratio < 2.0: ICA EDV<40 cm/s. 3. 50 to 69% stenosis=ICA PSV of 125 to 230 cm/s: ration 2.0 ? 4.0: ICA EDV 40-100 cm/s. 4. Greater than 70% stenosis to near occlusion= ICA PSV > 230 cm/s: ratio > 4.0: ICA EDV > 100 cm/s. 5. Near occlusion= ICA PSV velocities may be low or undetectable: variable ratio and ICA EDV. 6. Total occlusion=unable to detect flow.
[2020-03-15] MEDS: SODIUM CHLORIDE 0.9% 1,000 ML IV SCH ×2 (12:38→23:29)
[2020-03-15 14:31] LABS: Cholesterol 106 mg/dL (<200); HDL Cholesterol 33 mg/dL (40-60); LDL Cholesterol,Calculated 51 mg/dL (0-99); Triglycerides 109 mg/dL (<150)
[2020-03-15 14:32] LABS: Basophils % (A) 0 %; Eosinophils # (A) 0.1 k/uL (0-0.7); Eosinophils % (A) 0 %; HGB 7.9 gm/dL (13.0-17.5); Lymphocytes # (A) 1.3 k/uL (1.0-4.8); Lymphocytes % (A) 12 %; MCH 28.2 pg (25.0-35.0); MCHC 32.8 g/dL (31.0-37.0); Mean Platelet Volume 9.4; Monocytes # (A) 0.6 k/uL (0-1.0); Monocytes % (A) 6 %; Neutrophils # (A) 8.6 k/uL (1.3-7.7); Neutrophils % (A) 80 %; Platelet Count 177 k/uL (150-450); RBC 2.79 m/uL (4.30-5.90); RDW 13.6 % (11.5-15.5); WBC 10.7 k/uL (3.8-10.6)
--- NOTE | 2020-03-15 14:50 | P.GSCN ---
History of Present Illness Consult date: 03/15/20 Reason for Consult: urinary retention History of present illness: Mr Vargas is an 79-year-old male who presented to the hospital 03/12 after suffering a near syncopal event at home, falling and fracturing his left hip. He underwent surgical repair over the weekend. He had has catheter removed yesterday and went into retention post operatively, His PVR was elevated at 700 mL and khan cather was subsequently placed. Of note he has hx of BPH and he follows up with Dr Marina for BPH. He is on flomax for his BPH. Review of Systems - Constitutional Denies chills, Denies fever - Cardiovascular Reports syncope, Denies chest pain - Respiratory Denies dyspnea - Genitourinary Reports urinary retention, Denies flank pain Past Medical History Past Medical History: Deep Vein Thrombosis (DVT), Hyperlipidemia History of Any Multi-Drug Resistant Organisms: None Reported Past Surgical History: Appendectomy, Back Surgery Past Psychological History: No Psychological Hx Reported Smoking Status: Current every day smoker Past Alcohol Use History: None Reported Past Drug Use History: None Reported Medications and Allergies Home Medications Medication Instructions Recorded Confirmed Type Alfuzosin HCl [Alfuzosin HCl ER] 10 mg PO DAILY 03/12/20 03/12/20 History Aspirin EC [Ecotrin Low Dose] 81 mg PO DAILY 03/12/20 03/12/20 History Atorvastatin [Lipitor] 20 mg PO HS 03/12/20 03/12/20 History Finasteride [Proscar] 5 mg PO DAILY 03/12/20 03/12/20 History Allergies Allergy/AdvReac Type Severity Reaction Status Date / Time Antihistamines - Alkylamine AdvReac urinary Verified 03/12/20 15:25 retention Antihistamines - Ethanolamine AdvReac urinary Verified 03/12/20 15:25 retention Antihistamines - AdvReac urinary Verified 03/12/20 15:25 Ethylenediamine retention Antihistamines - Piperazine AdvReac urinary Verified 03/12/20 15:25 retention Antihistamines - Piperidine AdvReac urinary Verified 03/12/20 15:25 retention diphenhydramine AdvReac urinary Verified 03/12/20 15:25 [From Benadryl] retention hydromorphone HCl AdvReac Confusion Verified 03/12/20 15:25 [From Dilaudid] morphine AdvReac Confusion Verified 03/12/20 15:25 Surgical - Exam Vital Signs Pulse Ox 97 03/12/20 13:15 - General no distress, no pain - Eyes normal ocular movement, no pale - ENT normal mucosa, decreased hearing - Respiratory normal expansion, normal respiratory effort - Abdomen Abdomen: soft, non tender - Psychiatric oriented to time, oriented to person, oriented to place Results - Labs 03/15/20 14:22 03/15/20 09:22 Abnormal Lab Results - Last 24 Hours (Table) 03/15/20 03/15/20 03/15/20 Range/Units 09:22 09:22 09:22 WBC 11.1 H (3.8-10.6) k/uL RBC 2.84 L (4.30-5.90) m/uL Hgb 8.0 L (13.0-17.5) gm/dL Hct 24.3 L (39.0-53.0) % Neutrophils # 9.7 H (1.3-7.7) k/uL Lymphocytes # 0.8 L (1.0-4.8) k/uL Chloride 110 H (98-107) mmol/L BUN 28 H (9-20) mg/dL Glucose 136 H (74-99) mg/dL Calcium 8.0 L (8.4-10.2) mg/dL HDL Cholesterol 33 L (40-60) mg/dL 03/15/20 Range/Units 14:22 WBC 10.7 H (3.8-10.6) k/uL RBC 2.79 L (4.30-5.90) m/uL Hgb 7.9 L (13.0-17.5) gm/dL Hct 24.0 L (39.0-53.0) % Neutrophils # 8.6 H (1.3-7.7) k/uL Lymphocytes # (1.0-4.8) k/uL Chloride (98-107) mmol/L BUN (9-20) mg/dL Glucose (74-99) mg/dL Calcium (8.4-10.2) mg/dL HDL Cholesterol (40-60) mg/dL Diabetes panel 03/15/20 03/15/20 Range/Units 09:22 09:22 Sodium 140 (137-145) mmol/L Potassium 3.7 (3.5-5.1) mmol/L Chloride 110 H (98-107) mmol/L Carbon Dioxide 26 (22-30) mmol/L BUN 28 H (9-20) mg/dL Creatinine 0.87 (0.66-1.25) mg/dL Glucose 136 H (74-99) mg/dL Calcium 8.0 L (8.4-10.2) mg/dL Triglycerides 109 (<150) mg/dL HDL Cholesterol 33 L (40-60) mg/dL Thyroid panel 03/15/20 Range/Units 09:22 TSH 3.190 (0.465-4.680) mIU/L Calcium panel 03/15/20 Range/Units 09:22 Calcium 8.0 L (8.4-10.2) mg/dL Pituitary panel 03/15/20 Range/Units 09:22 Sodium 140 (137-145) mmol/L Potassium 3.7 (3.5-5.1) mmol/L Chloride 110 H (98-107) mmol/L Carbon Dioxide 26 (22-30) mmol/L BUN 28 H (9-20) mg/dL Creatinine 0.87 (0.66-1.25) mg/dL Glucose 136 H (74-99) mg/dL Calcium 8.0 L (8.4-10.2) mg/dL TSH 3.190 (0.465-4.680) mIU/L Adrenal panel 03/15/20 Range/Units 09:22 Sodium 140 (137-145) mmol/L Potassium 3.7 (3.5-5.1) mmol/L Chloride 110 H (98-107) mmol/L Carbon Dioxide 26 (22-30) mmol/L BUN 28 H (9-20) mg/dL Creatinine 0.87 (0.66-1.25) mg/dL Glucose 136 H (74-99) mg/dL Calcium 8.0 L (8.4-10.2) mg/dL Assessment and Plan Assessment: Mr Vargas is an 79-year-old male admitted with left hip fracture.. He had has catheter removed yesterday and went into retention post operatively, His PVR was elevated at 700 mL and khan cather was subsequently placed. Of note he has hx of BPH and he follows up with Dr Marina for BPH. Plan: -Continue flomax, can increase to 0.8 mg -Can keep khan for one week -Can f/u with Dr Marina in one week for TOV
[2020-03-15] MEDS: Acetaminophen-Codeine 300-30mg TAB PO PRN (17:13)
--- NOTE | 2020-03-15 17:19 | P.PN ---
Subjective Progress Note Date: 03/15/20 Principal diagnosis: Sinus bradycardia Fall/left intertrochanteric hip fracture; status post surgery Hyponatremia 79-year-old male with a past medical history including DVT and hyperlipidemia who presented to the emergency department after a syncopal episode. The patient was rolling a cigarette in his garage and fell onto his left side. He had immediate left hip pain and was unable to bear weight. Upon evaluation in the ER, patient was found to have a comminuted intertrochanteric fracture of the left hip and skin tears to his left elbow and hand. CT of the head and neck reveal no acute bleed or fractures noted. The patient was admitted for surgical treatment of the left hip. Patient is status post left hip surgery; POD #1; patient remains placid confused 03/14/2020 Patient is seen and evaluated with multiple family members at bedside; daughter is concerned about episodes of bradycardia; cardiology consult has been placed Vital signs remained stable with a temperature of 98.2, pulse 78, respirations 16 and blood pressure of 120/51 Lab review shows elevated white blood count of 13.2 which is slightly increased from yesterday at 12.4; hemoglobin remained stable at 8.2; sodium of 135 Cardiology has been consulted for evaluation of bradycardia; patient has been cleared by surgery for discharge to skilled rehab; plan would be to discharge patient to SNF once evaluated and cleared by cardiology 03/15/2020 Patient is seen and evaluated in room at bedside; cardiology has evaluated patient for asymptomatic bradycardia with syncopal episodes; patient has been placed on 24-hour telemetry with plan for possible event monitor at time of discharge; 2-D echo with Doppler studies ordered and pending; patient will have bilateral carotid Doppler studies; order TSH and lipid profile Plan is to discharge patient to skilled rehab once cleared by cardiology Objective - Vital Signs Vital signs: Vital Signs Temp 98.1 F 03/15/20 09:37 Pulse 83 03/15/20 09:37 Resp 20 03/15/20 01:00 BP 153/66 03/15/20 09:37 Pulse Ox 100 03/15/20 09:37 Intake & Output 03/14/20 03/15/20 03/15/20 18:59 06:59 18:59 Output Total 400 Balance -400 Output: Urine 400 Other: Voiding Method Urinal Urinal Indwelling Catheter Incontinent Incontinent # Voids 1 1 - Exam HEENT: Pupils are round and equally reacting to light. EOMI. No scleral icterus. No conjunctival pallor. Normocephalic, atraumatic. No pharyngeal erythema. No thyromegaly. CARDIOVASCULAR: S1 and S2 present. No murmurs, rubs, or gallops. PULMONARY: Chest is clear to auscultation, no wheezing or crackles. ABDOMEN: Soft, nontender, nondistended, normoactive bowel sounds. No palpable organomegaly. MUSCULOSKELETAL: Deferred to orthopedic surgery EXTREMITIES: No cyanosis, clubbing, or pedal edema. NEUROLOGICAL: Gross neurological examination did not reveal any focal deficits. - Labs CBC & Chem 7: 03/15/20 14:22 03/15/20 09:22 Labs: Abnormal Lab Results - Last 24 Hours (Table) 03/15/20 03/15/20 Range/Units 09:22 09:22 WBC 11.1 H (3.8-10.6) k/uL RBC 2.84 L (4.30-5.90) m/uL Hgb 8.0 L (13.0-17.5) gm/dL Hct 24.3 L (39.0-53.0) % Neutrophils # 9.7 H (1.3-7.7) k/uL Lymphocytes # 0.8 L (1.0-4.8) k/uL Chloride 110 H (98-107) mmol/L BUN 28 H (9-20) mg/dL Glucose 136 H (74-99) mg/dL Calcium 8.0 L (8.4-10.2) mg/dL Assessment and Plan Assessment: - Sinus bradycardia; patient remains asymptomatic; cardiology is consulted and recommendations are pending -Fall and left intertrochanteric fracture status post surgery. -COPD without any significant exacerbation -Leukocytosis reactive secondary to fall -Hyponatremia hypovolemic hyponatremia improved with IV fluids IV fluids will be discontinued -Hyperlipidemia -Chronic low back pain -Benign prostatic hypertrophy Continue with present medications for myeloid benzo as well as barbiturates anticollagen medications constricting his age
[2020-03-15] MEDS: diazePAM 5 MG TAB PO PRN (19:43)
[2020-03-15] MEDS: ATORVASTATIN 20 MG TAB PO SCH (19:43)
[2020-03-16] MEDS: IPRATROPIUM-ALBUTEROL 3 ML NEB INHALATION SCH ×2 (08:18→12:32)
[2020-03-16] MEDS: HEPARIN SODIUM,PORCINE 5,000 UNIT/ML 1 ML VIAL SQ SCH (08:39)
[2020-03-16] MEDS: PANTOPRAZOLE 40 MG TABLET PO SCH (08:39)
[2020-03-16] MEDS: FAMOTIDINE 20 MG TAB PO SCH (08:39)
[2020-03-16] MEDS: ACETAMINOPHEN TAB 325 MG TAB PO PRN (08:39)
[2020-03-16] MEDS: TAMSULOSIN 0.4 MG CAP.ER.24H PO SCH (08:39)
[2020-03-16] MEDS: FINASTERIDE 5 MG TAB PO SCH (08:39)
[2020-03-16] MEDS: NICOTINE 14MG/24HR PATCH TRANSDERM SCH (08:40)
--- NOTE | 2020-03-16 09:50 | P.DS ---
Providers Date of admission: 03/12/20 16:17 Expected date of discharge: 03/16/20 Attending physician: Jagjit Deras Consults: 03/12/20 16:18 Consult Physician Routine Consulting Provider: Sarah Chadwick Consult Reason/Comments: Preoperative clearance Do you want consulting provider notified?: Already Contacted 03/14/20 12:51 Consult Physician Routine Consulting Provider: Chandler Beard Consult Reason/Comments: snycope and bradycardia Do you want consulting provider notified?: Yes 03/15/20 10:17 Consult Physician Routine Consulting Provider: Scott Andrade Consult Reason/Comments: urinary retention Do you want consulting provider notified?: Yes Primary care physician: Physician Nonstaff - Discharge Diagnosis(es) (1) Fall Current Visit: Yes Status: Acute (2) Fracture, intertrochanteric, left femur Current Visit: Yes Status: Acute Hospital Course: This is a 79-year-old male who is admitted to [facility] on 03/12/2020 after falling and sustaining injury to the left hip. On exam and x- ray in the emergency department he is found to have an intertrochanteric fracture of the left hip. He is admitted to our service for surgical intervention and care. Patient is taken to surgery for close reduction and insertion of intertrochanteric nail of the left hip. The procedure was performed without complication or sequelae. The patient is doing fairly well postoperatively. He continued to have some confusion. He had some urinary retention and his Khan catheter was replaced. He will leave the catheter in 1 week in follow-up with urology. He had evaluation with cardiology who will monitor with a loop recorder. Vital signs and labs are stable on postoperative day #3. Patient is discharged to inpatient rehab in good condition pending medical clearance. Please see med rec for accurate list of discharge medications. Patient Condition at Discharge: Stable Plan - Discharge Summary Discharge Rx Participant: Yes New Discharge Prescriptions: New Aspirin [Adult Low Dose Aspirin EC] 81 mg PO BID #1 tablet.dr Moralez-Docusate Sodium [Senokot-S] 1 tab PO BID #60 tablet Acetaminophen-Codeine 300-30mg [Tylenol w/codeine #3] 1 - 2 tab PO Q4-6H PRN 7 Days #50 tablet PRN Reason: Pain No Action Finasteride [Proscar] 5 mg PO DAILY Atorvastatin [Lipitor] 20 mg PO HS Aspirin EC [Ecotrin Low Dose] 81 mg PO DAILY Alfuzosin HCl [Alfuzosin HCl ER] 10 mg PO DAILY Discharge Medication List Alfuzosin HCl [Alfuzosin HCl ER] 10 mg PO DAILY 03/12/20 [History] Aspirin EC [Ecotrin Low Dose] 81 mg PO DAILY 03/12/20 [History] Atorvastatin [Lipitor] 20 mg PO HS 03/12/20 [History] Finasteride [Proscar] 5 mg PO DAILY 03/12/20 [History] Acetaminophen-Codeine 300-30mg [Tylenol w/codeine #3] 1 - 2 tab PO Q4-6H PRN 7 Days #50 tablet 03/16/20 [Rx] Aspirin [Adult Low Dose Aspirin EC] 81 mg PO BID #1 tablet. 03/16/20 [Rx] Sennosides-Docusate Sodium [Senokot-S] 1 tab PO BID #60 tablet 03/16/20 [Rx] Follow up Appointment(s)/Referral(s): Dolly Cervantes, PAC [PHYSICIAN DIRECTOR REGULATORY AFFAIRS] - 3 Weeks None,Stated [REFERRING] - 1-2 days Activity/Diet/Wound Care/Special Instructions: Keep khan in place for 1 week. Placed on 03/15/2020. Toe touch wt bearing LLE w walker. Discharge Disposition: TRANSFER TO SNF/ECF
--- NOTE | 2020-03-16 09:56 | ECHOF ---
Referral Reason:syncope MEASUREMENTS -------- HEIGHT: 170.2 cm WEIGHT: 52.6 kg BP: 164/76 IVSd: 0.8 cm (0.6 - 1.1) LVIDd: 3.2 cm (3.9 - 5.3) LVPWd: 0.8 cm (0.6 - 1.1) IVSs: 1.1 cm LVIDs: 1.4 cm LVPWs: 1.3 cm Ao Diam: 3.2 cm (2.0 - 3.7) AV Cusp: 1.1 cm (1.5 - 2.6) LA Diam: 2.8 cm (2.7 - 3.8) MV EXCURSION: 12.148 mm (> 18.000) MV EF SLOPE: 45 mm/s (70 - 150) EPSS: 1.6 cm MV E Julio: 0.57 m/s MV DecT: 295 ms MV A Julio: 0.67 m/s MV E/A Ratio: 0.85 AV maxP.25 mmHg AV meanP.42 mmHg RAP: 5.00 mmHg RVSP: 32.30 mmHg FINDINGS -------- Sinus rhythm. This was a technically adequate study. The left ventricular size is normal. Left ventricular wall thickness is normal. Overall left vent ricular systolic function is normal with, an EF between 55 - 60 %. The right ventricle is normal in size. The left atrial size is normal. The right atrial size is normal. Interatrial and interventricular septum intact. Aortic valve is trileaflet and is mildly thickened. There is mild aortic valve sclerosis. Peak/me an gradient across the Aortic Valve is 12.25mmHg / 7.42mmHg. The mitral valve is normal. There is trace mitral regurgitation. The tricuspid valve appears structurally normal. Mild tricuspid regurgitation present. Right vent ricular systolic pressure is normal at < 35 mmHg. There is no pulmonic regurgitation present. The aortic root size is normal. IVC Not well visulized. There is no pericardial effusion. CONCLUSIONS -------- 1. Overall left ventricular systolic function is normal with, an EF between 55 - 60 %. 2. Aortic valve is trileaflet and is mildly thickened. 3. There is mild aortic valve sclerosis. 4. Peak/mean gradient across the Aortic Valve is 12.25mmHg / 7.42mmHg. 5. There is trace mitral regurgitation. 6. Mild tricuspid regurgitation present. SCHOOL CUSTODIAN: Dolly Mathew RDCS
[2020-03-16] MEDS: SODIUM CHLORIDE 0.9% 1,000 ML IV SCH (11:58)
--- NOTE | 2020-03-16 12:11 | P.PN ---
Subjective HISTORY OF PRESENTING ILLNESS This is a pleasant 79-year-old male past medical history significant for dyslipidemia, chronic nicotine dependence and frequent syncopal episodes of the previous 3 years. He does not follow in the office with a private pilot. He is seen and examined sitting up in bed in no acute distress. HEENT denies sym ptoms of chest pain, shortness of breath, dizziness or palpitations. Telemetry tracings are unremarkable for an acute arrhythmia. He does have episodes of sinus tachycardia noted. He has been upwards to physical therapy and is going to be discharged today from an orthopedic perspective. Blood pressure 151/72 heart rate 88 afebrile maintaining oxygen saturation on nasal cannula. Laboratory data reviewed, LDL 51, HDL 33 and TSH 3.19. Carotid Doppler reveals large irregular plaques left greater than right with moderate stenosis ICA between 50 and 69%. Echocardiogram reveals preserved LV systolic function with ejection fraction 55-60%, aortic valve is mildly thickened with a mean gradient of 7 mmHg. PHYSICAL EXAMINATION CONSTITUTIONAL: No apparent distress. HEENT: Head is normocephalic. Pupils are equal, round. Sclerae anicteric. Mucous membranes of the mouth are moist. No JVD. Left carotid bruit. CHEST EXAMINATION: Lungs are clear to auscultation. No chest wall tenderness is noted on palpation or with deep breathing. Diminished bilaterally. HEART EXAMINATION: Regular rate and rhythm. S1, S2 heard. Soft systolic ejection murmur at the left sternal border, no gallops or rub. EXTREMITIES: 2+ peripheral pulses, no lower extremity edema and no calf tenderness. ASSESSMENT Syncope. Likely related to his sick sinus syndrome. Left hip fracture status post surgical repair Dyslipidemia Chronic nicotine dependence PLAN 30-day event monitor to be applied before discharge. Follow-up in the office with Dr. Natarajan in 4-6 weeks. Nurse Practitioner note has been reviewed, I agree with a documented findings and plan of care. Patient was seen and examined. Objective - Vital Signs Vital signs: Vital Signs Temp 98.3 F 03/16/20 07:36 Pulse 80 03/16/20 08:29 Resp 20 03/16/20 07:36 BP 151/72 03/16/20 07:36 Pulse Ox 97 03/16/20 07:36 Intake & Output 03/15/20 03/16/20 03/16/20 18:59 06:59 18:59 Output Total 800 Balance -800 Weight 52.617 kg Output: Urine 800 Other: Voiding Method Indwelling Catheter Indwelling Catheter Indwelling Catheter - Labs CBC & Chem 7: 03/15/20 14:22 03/15/20 09:22 Labs: Abnormal Lab Results - Last 24 Hours (Table) 03/15/20 03/15/20 03/15/20 Range/Units 09:22 09:22 14:22 WBC 10.7 H (3.8-10.6) k/uL RBC 2.79 L (4.30-5.90) m/uL Hgb 7.9 L (13.0-17.5) gm/dL Hct 24.0 L (39.0-53.0) % Neutrophils # 8.6 H (1.3-7.7) k/uL Chloride 110 H (98-107) mmol/L BUN 28 H (9-20) mg/dL Glucose 136 H (74-99) mg/dL Calcium 8.0 L (8.4-10.2) mg/dL HDL Cholesterol 33 L (40-60) mg/dL
[2020-03-16 16:10] VITALS: BP 134/65; PULSE 81; RESP 16; TEMP 98.1
== END 2020-03-16 17:24 | DRG 480 ==
LOC: EC 13:08 → 4SSUR 16:17
PROVIDERS: ADMIT Orthopaedic Surgery; ATTEND Orthopaedic Surgery
PROC: 0QS736Z Reposition Left Upper Femur with Intramedullary Internal Fixation Device, Percutaneous Approach (ICD-10-PCS; principal; 2020-03-13 10:30)
DX: S72.142A Displaced intertrochanteric fracture of left femur, initial encounter for closed fracture (principal); G93.41 Metabolic encephalopathy; E87.1 Hypo-osmolality and hyponatremia; W19.XXXA Unspecified fall, initial encounter; D64.9 Anemia, unspecified; D72.829 Elevated white blood cell count, unspecified; E78.5 Hyperlipidemia, unspecified; E86.1 Hypovolemia; F17.210 Nicotine dependence, cigarettes, uncomplicated; Z11.59 Encounter for screening for other viral diseases; G89.29 Other chronic pain; M54.5 Low back pain; H91.90 Unspecified hearing loss, unspecified ear; I45.10 Unspecified right bundle-branch block; I49.5 Sick sinus syndrome; J44.9 Chronic obstructive pulmonary disease, unspecified; N40.1 Benign prostatic hyperplasia with lower urinary tract symptoms; R33.8 Other retention of urine; S51.012A Laceration without foreign body of left elbow, initial encounter; S61.412A Laceration without foreign body of left hand, initial encounter; Y92.015 Private garage of single-family (private) house as the place of occurrence of the external cause; Z79.82 Long term (current) use of aspirin; Z79.899 Other long term (current) drug therapy; Z86.718 Personal history of other venous thrombosis and embolism; Z90.49 Acquired absence of other specified parts of digestive tract; Z88.5 Allergy status to narcotic agent; Z88.8 Allergy status to other drugs, medicaments and biological substances
CPT/HCPCS: 70450; 71045; 72125; 73501; 73502; 80048; 80053; 80061; 82550; 84443; 84484; 85025; 85610; 85730; 87635; 88304; 88311; 93005; 93270; 93306; 93880; 94640; 94760; 96374; 96375; 99285